=== PATIENT | female | born 1945 | race Caucasian/White ===

== ENCOUNTER 2024-10-25 13:59 | Emergency (ER) | payer MEDICARE ==
[~2024-10-25] VITALS: Ht 162.6 cm; Wt 86.1 kg
[2024-10-25] MEDS ORDERED: HYDROcodone 5 MG/Acetaminophen 325 MG/COMBO PO ONE (20:10)
[2024-10-25] MEDS ORDERED: TRAMADOL HYDROC50 M1 PO (20:16)
[2024-10-25 20:50] VITALS: BP 143/67
== END 2024-10-25 20:50 | disposition home or self-care (01) ==
LOC: ED 13:59
DX: S46.812A Strain of other muscles, fascia and tendons at shoulder and upper arm level, left arm, initial encounter (principal); W01.0XXA Fall on same level from slipping, tripping and stumbling without subsequent striking against object, initial encounter